=== PATIENT | male | born 1965 | race Hispanic/Latino ===

== ENCOUNTER 2025-04-10 11:37 | Outpatient (CLI) | payer OTHER ==
[2025-04-10 12:33] LABS: Estimated GFR - POC 69.0
== END 2025-04-10 11:38 | disposition home or self-care (01) ==
LOC: CSHMRI 11:37
PROVIDERS: ATTEND Urology
DX: R97.20 Elevated prostate specific antigen [PSA] (principal)
CPT/HCPCS: 36415; 72197; 82565